=== PATIENT | female | born 1975 | race Two or more races ===

== ENCOUNTER 2020-03-09 22:24 | Emergency (ER) | payer OTHER ==
[~2020-03-09] VITALS: Ht 154.9 cm; Wt 65.9 kg
[2020-03-09 23:02] VITALS: BP 206/99
[2020-03-09] MEDS ORDERED: CYCL10TA2 PO (23:34)
[2020-03-09] MEDS ORDERED: NAPR-514 PO (23:34)
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
== END 2020-03-10 01:27 | disposition home or self-care (01) ==
LOC: ER 22:24
DX: S13.9XXA Sprain of joints and ligaments of unspecified parts of neck, initial encounter (principal); M25.521 Pain in right elbow; M54.5 Low back pain; E11.9 Type 2 diabetes mellitus without complications; V49.59XA Passenger injured in collision with other motor vehicles in traffic accident, initial encounter; Y92.488 Other paved roadways as the place of occurrence of the external cause; Y93.89 Activity, other specified; Y99.8 Other external cause status
CPT/HCPCS: 72040; 73080; 99284